=== PATIENT | male | born 1975 | race Two or more races ===

== ENCOUNTER 2024-07-21 08:50 | Emergency (ER) | payer OTHER ==
[~2024-07-21] VITALS: Ht 180.3 cm; Wt 91.9 kg
--- NOTE | 2024-07-21 09:01 | ED.PDOC ---
GI ASSESSMENT HPI Comments A 49 YEAR OLD MALE PRESENTS TO THE ED WITH CHIEF COMPLAINT OF ABDOMINAL PAIN. PATIENT REPORTS THAT HE HAS BEEN EXPERIENCING RIGHT UPPER QUADRANT ABDOMINAL PAIN FOR THE PAST 2 DAYS. PATIENT RELAYS THAT HE HAS HISTORY OF LIVER CIRRHOSIS DUE TO HEAVY DRINKING AND QUIT A YEAR AGO, HOWEVER, 2 MONTHS AGO HE STARTED TO DRINK A 12 PACK OF BEER DAILY. PATIENT STATES HE HAD WENT TO REHAB 2 DAYS AGO, BUT STARTED TO EXPERIENCE CONSTANT RUQ ABDOMINAL PAIN WITH ASSOCIATED NAUSEA. PATIENT DENIES ANY VOMITING, DIARRHEA, SOB, CHEST PAIN, DIZZINESS, FEVER, CHILLS, OR DYSURIA. PATIENT NOTES HIS LAST DRINK WAS 2 DAYS AGO WHEN THE REHAB CENTER GAVE HIM A SMALL AMOUNT OF ALCOHOL TO ALLOW HIM TO SLEEP. NO OTHER SYMPTOMS REPORTED AT THIS TIME OF CARE. Time Seen by MD: 08:56 Reviewed Notes: Nurses Notes, Medications, Allergies Allergies: Coded Allergies: NO KNOWN ALLERGIES (Unverified , 07/21/24) Home Meds Active Scripts Ondansetron Odt 4MG Tab (ZOFRAN PO) 4 Mg Tb, 4 MG PO BID, #30 TAB ODT TAB-DISSOLVE IN MOUTH, THEN SWALLOW Prov:BRIGID PEREZ 07/21/24 Ibuprofen (Ibuprofen) 800 Mg Tab, 1 TAB PO TID, #30 TAB Prov:BRIGID PEREZ 07/21/24 Information Source: Patient Mode of Arrival: Ambulatory Timing: Days Duration: Since onset Prehospital treatment: None Quality: Aching, Cramping, Sharp, Colicky Vomitus: None Stool: Normal Severity: Moderate Recent: None Recent Hx of: None Pain Location: RUQ, Other (RIGHT MIDDLE ABD PAIN ) Modifying Factors: Nothing Associated sign and symptoms: Nausea, Abdominal Pain Past Medical History Past Medical History (Other): LIVER CIRRHOSIS Surgical History: Denies all surgeries Family History Family History: Reviewed,noncontributory to illness Social History Smoker: Non-Smoker Alcohol: Heavy Drugs: Denies Drug Use Lives In: Home Constitutional: denies: chills, diaphoresis, fatigue, fever, malaise, sweats, weakness, others EENTM: denies: blurred vision, double vision, ear bleeding, ear discharge, ear drainage, ear pain, ear ringing, eye pain, eye redness, hearing loss, mouth pain, mouth swelling, nasal discharge, nose bleeding, nose congestion, nose pain, photophobia, tearing, throat pain, throat swelling, voice changes, others Respiratory: denies: cough, hemoptysis, orthopnea, SOB at rest, shortness of breath, SOB with excertion, stridor, wheezing, others Cardiovascular: denies: chest pain, dizzy spells, diaphoresis, Dyspnea on exertion, edema, irregular heart beat, left arm pain, lightheadedness, palpitations, PND, syncope, others Gastrointestinal: reports: abdominal pain, nausea; denies: abdomen distended, blood streaked bowels, constipated, diarrhea, dysphagia, difficulty swallowing, hematemesis, melena, poor appetite, poor fluid intake, rectal bleeding, rectal pain, vomiting, others Genitourinary: denies: burning, dysuria, flank pain, frequency, hematuria, incontinence, penile discharge, penile sore, pain, testicle pain, testicle swelling, urgency, others Neurological: denies: dizziness, fainting, headache, left sided numbness, left sided weakness, numbness, paresthesia, pre-existing deficit, right sided numbness, right sided weakness, seizure, speech problems, tingling, tremors, weakness, others Musculoskeletal: denies: back pain, gout, joint pain, joint swelling, muscle pain, muscle stiffness, neck pain, others Integumetry: denies: bruises, change in color, change in hair/nails, dryness, laceration, lesions, lumps, rash, wounds, others Allergic/Immunocompromised: denies: Difficulty Healing, Frequent Infections, Hives, Itching, others Hematologic/Lymphatic: denies: anemia, blood clots, easy bleeding, easy bruising, swollen glands, others Endocrine: denies: excessive hunger, excessive sweating, excessive thirst, excessive urination, flushing, intolerance to cold, intolerance to heat, unexplained weight gain, unexplained weight loss, others Psychiatric: denies: anxiety, bipolar disorder, depression, hopeless, panic disorder, schizophrenia, sleepless, suicidal, others All Other Systems: Reviewed and Negative Physical Exam General Appearance: No Apparent Distress, Normal HEENT: Normal ENT Inspection, PERRL/EOMI Neck: Full Range of Motion, Non-Tender, Normal, Normal Inspection Respiratory: Chest Non-Tender, Lungs Clear, No Accessory Muscle Use, No Respiratory Distress, Normal Breath Sounds Cardiovascular: No Edema, No JVD, No Murmur, No Gallop, Normal Peripheral Pulses, Regular Rate/Rhythm Breast Exam: Deferred Gastrointestinal: No Organomegaly, No Pulsatile Mass, Normal Bowel Sounds, RUQ, Soft, Tenderness (RIGHT MIDDLE ABD, NO GUARDING AND REBOUND TENDERNESS, NO DISTENDED ABD. ) Genitalia: Deferred Pelvic: Deferred Rectal: Deferred Extremities: No calf tenderness, Normal capillary refill, Normal inspection, Normal range of motion, Non-tender, No pedal edema Musculoskeletal : Apperance: Normal Neurologic: Alert, job forwarder II-XII nml as Tested, No Motor Deficits, Normal Affect, Normal Mood, No Sensory Deficits Cerebellar Function: Normal Reflexes: Normal Skin: Dry, Normal Color, Warm Peripheral Pulses: 2+ carotid (R), 2+ carotid (L) Lymphatic: No Adenopathy Was a procedure done? Was a procedure done?: No GI differential Dx Differential Diagnosis: Cholangitis, Cholecystitis, Gastritis/PUD, Gastroenteritis, Hepatitis, Inflammatory BD, UTI, Urolithiasis X-Ray, Labs, Meds, VS Vital Signs Date Time Temp Pulse Resp B/P (MAP) Pulse Ox O2 Delivery O2 Flow Rate FiO2 07/21/24 11:01 98.7 108 18 147/88 (107) 99 98.7 07/21/24 09:54 107 18 97 Room Air 07/21/24 09:54 98.6 107 18 172/95 (120) 97 98.6 07/21/24 09:29 Room Air* 0 21 07/21/24 09:00 98.6 107 18 192/95 (127) 97 Lab Test 07/21/24 09:28 07/21/24 09:00 Range/Units White Blood Count 8.8 4.4-10.8 10^3/uL Red Blood Count 5.36 4.5-5.90 10^6/uL Hemoglobin 16.2 13.5-17.5 g/dL Hematocrit 46.6 41.0-53.0 % Mean Corpuscular Volume 87.0 80.0-100.0 fL Mean Corpuscular Hemoglobin 30.3 28.0-32.0 pg Mean Corpuscular Hemoglobin Concent 34.8 32.0-36.0 g/dL Red Cell Distribution Width 15.0 H 11.8-14.3 % Platelet Count 127 L 140-450 10^3/uL Mean Platelet Volume 8.5 6.9-10.8 fL Neutrophils (%) (Auto) 66.8 37.0-80.0 % Lymphocytes (%) (Auto) 23.7 10.0-50.0 % Monocytes (%) (Auto) 7.6 0.0-12.0 % Eosinophils (%) (Auto) 0.9 0.0-7.0 % Basophils (%) (Auto) 1.0 0.0-2.0 % Neutrophils # (Auto) 5.9 1.6-8.6 10 ^3/uL Lymphocytes # (Auto) 2.1 0.4-5.4 10 ^3/uL Monocytes # (Auto) 0.7 0-1.3 10 ^3/uL Eosinophils # (Auto) 0.1 0-0.8 10 ^3/uL Basophils # (Auto) 0.1 0-0.2 10 ^3/uL Nucleated Red Blood Cells 0.3 % Prothrombin Time 11.6 9.3-11.8 sec Prothrombin Time INR 1.10 0.9-1.15 Sodium Level 136 136-145 mmol/L Potassium Level 3.8 3.5-5.1 mmol/L Chloride Level 102 98-107 mmol/L Carbon Dioxide Level 24 20-31 mmol/L Anion Gap 10 5-15 Blood Urea Nitrogen 9 9-23 mg/dL Creatinine 0.91 0.700-1.30 mg/dL Glomerular Filtration Rate Calc 105 >90 mL/min BUN/Creatinine Ratio 9.9 L 10.0-20.0 Serum Glucose 209 H 74-106 mg/dL Calcium Level 10.2 8.7-10.4 mg/dL Total Bilirubin 2.9 H 0.2-1.0 mg/dL Aspartate Amino Transferase (AST) 43 H 13-40 U/L Alanine Aminotransferase (ALT) 30 7-40 U/L Alkaline Phosphatase 169 H 46-116 U/L Ammonia 32 11-32 umol/L Total Protein 8.8 H 5.7-8.2 g/dL Albumin 4.7 3.2-4.8 g/dL Lipase 51 12-53 U/L Plasma/Serum Blood Alcohol < 3.0 <10 mg/dL Urine Color Yellow Yellow Urine Clarity Clear Clear Urine pH 8.5 5.0-9.0 Urine Specific [place] 1.029 1.001-1.035 Urine Protein 2+ H Negative Urine Ketones 1+ H Negative Urine Blood Negative Negative /uL Urine Nitrite Negative Negative Urine Bilirubin Negative Negative Urine Urobilinogen 12 H Negative mg/dL Urine Leukocyte Esterase Negative Negative /uL Urine RBC 1 0 - 3 /hpf Urine WBC 1 0 - 3 /hpf Urine Squamous Epithelial Cells Few <5 /hpf Urine Bacteria Few H None Seen /hpf Urine Mucus Few None Seen Urine Glucose 4+ H Normal mg/dL Current Medications Medications (Trade) Dose Ordered Sig/Rey Route Start Time Stop Time Status Last Admin Ketorolac Tromethamine (Toradol Injection) 60 mg ONCE ONCE IM 07/21/24 11:00 07/21/24 11:01 DC 07/21/24 11:11 CT ABD/PEL: Findings: Evaluation of vasculature and solid organs is limited due to lack of intravenous contrast use. Lung Bases: Lung bases are clear. Visualized portions of the heart and pericardium are unremarkable. Liver: The liver is nodular in contour. Diffusely low attenuating liver parenchyma. Gallbladder and Biliary Tree: The gallbladder contains layering increased density compatible with sludge. There is a punctate gallstone. No intrahepatic or extrahepatic biliary ductal dilatation. Spleen: Unremarkable Pancreas: The pancreas is grossly unremarkable. Adrenal Glands: Unremarkable Kidneys: Kidneys are unremarkable without calculi or hydronephrosis. GI tract: The stomach is grossly normal in appearance. No evidence of small bowel wall thickening or abnormal dilatation to suggest bowel obstruction. Sigmoid and ascending diverticulosis without acute diverticulitis. Normal caliber appendix. Peritoneum/mesentery/retroperitoneum. No evidence of free intraperitoneal air. No ascites. No evidence of suspicious lymphadenopathy. Abdominal Wall: Unremarkable. Vasculature: The visualized abdominal aorta is normal in size and caliber. Evaluation of abdominal and pelvic vessels is limited due to lack of intravenous contrast. Periesophageal varices. Urinary Bladder: Grossly unremarkable for degree of distention. Pelvic Organs: Unremarkable Musculoskeletal: No aggressive focal bony lesions, acute fractures or dislocation. IMPRESSION: 1. No acute abdominal or pelvic findings. 2. Gallbladder sludge. Punctate gallstone. 3. Cirrhotic morphology of the liver and hepatic steatosis. 4. Colonic diverticulosis without acute diverticulitis. X-Ray, Labs, Meds, VS Comment I reviewed the following notes from patient's past medical encounters: None The following tests were ordered, and results were reviewed by me: PTPTT, LIPASE, CBC, CMP, AMMONIA, UA, BLOOD ETOH, CT ABD/PEL Additional Information was gathered from interviewing the following independent historians: None I reviewed and agreed with the following test results read by other providers: CT ABD/PEL I discussed treatment and results with medical personnel. TREATMENT: TORADOL 60MG IM Images Reviewed?: Images reviewed and evaluated by me Time of 1ST Reevaluation: :43 Reevaluation 1ST: Improved Patient Education/Counseling: Diagnosis, Treatment, Need For Follow Up Family Education/Counseling: Diagnosis, Treatment, No Family Present Medical Screening: No EMC Exist At This Time Departure 1 Departure Time of Disposition: :43 Impression: Primary Impression: Gallstone Qualified Codes: K80.20 - Calculus of gallbladder without cholecystitis without obstruction Additional Impressions: Gallbladder sludge Liver cirrhosis Qualified Codes: K70.30 - Alcoholic cirrhosis of liver without ascites Disposition: HOME / SELF CARE / HOMELESS Condition: Stable Additional Instructions: FOLLOW UP WITH PCP WITHIN 2-3 DAYS. e-Prescriptions Ondansetron Odt 4MG Tab (ZOFRAN PO) 4 Mg Tb 4 MG PO BID, #30 TAB ODT TAB-DISSOLVE IN MOUTH, THEN SWALLOW Prov: BRIGID PEREZ 07/21/24 Ibuprofen (Ibuprofen) 800 Mg Tab 1 TAB PO TID, #30 TAB Prov: BRIGID PEREZ 07/21/24 Discharged With: Self Critical Care Note Critical Care Time?: No Stability Stability form required: No Heart Score Heart Score: Heart Score Response (Comments) Value History N/A 0 EKG N/A 0 Age N/A 0 Risk Factors N/A 0 Troponin N/A 0 Total 0 I personally scribed for BIRGID PEREZ ([email or web address]) on 07/21/24 at 09:01. Electronically submitted by Gilberto Gifford ([email or web address]). I personally scribed for BRIGID PEREZ ([email or web address]) on 07/21/24 at 09:10. Electronically submitted by Gilberto Gifford ([email or web address]). I personally scribed for BRIGID PEREZ ([email or web address]) on 07/21/24 at 09:38. Electronically submitted by Gilberto Gifford ([email or web address]). I personally scribed for BRIGID PEREZ ([email or web address]) on 07/21/24 at 10:58. Electronically submitted by Gilberto Gifford ([email or web address]). I personally scribed for BRIGID PEREZ ([email or web address]) on 07/21/24 at 11:39. Electronically submitted by Gilberto Gifford ([email or web address]). BRIGID PEREZ Jul 21, 2024 09:01
--- NOTE | 2024-07-21 09:35 | DVH ---
Exam: CT CT AB PEL WO CON-NO ORAL OR IV History: RIGHT MIDDLE ABD PAIN POST ETOH, HX OF ETOH ABUSE Comparison Study: None available at time of dictation. Technique: Multidetector spiral CT of the abdomen and pelvis was performed from lung bases to pubic s ymphysis. Imaging was performed without intravenous contrast. Coronal and sagittal multiplanar refor mats were obtained from the axial data set by the technologist. Radiation Dose : 1. Abdomen/Pelvis: CTDIvol 13.9 mGy, DLP 813.3 mGy*cm. Findings: Evaluation of vasculature and solid organs is limited due to lack of intravenous contrast use. Lung Bases: Lung bases are clear. Visualized portions of the heart and pericardium are unremarkable. Liver: The liver is nodular in contour. Diffusely low attenuating liver parenchyma. Gallbladder and Biliary Tree: The gallbladder contains layering increased density compatible with slu dge. There is a punctate gallstone. No intrahepatic or extrahepatic biliary ductal dilatation. Spleen: Unremarkable Pancreas: The pancreas is grossly unremarkable. Adrenal Glands: Unremarkable Kidneys: Kidneys are unremarkable without calculi or hydronephrosis. GI tract: The stomach is grossly normal in appearance. No evidence of small bowel wall thickening or abnormal dilatation to suggest bowel obstruction. Sigmoid and ascending diverticulosis without acute diverticulitis. Normal caliber appendix. Peritoneum/mesentery/retroperitoneum. No evidence of free intraperitoneal air. No ascites. No evidenc e of suspicious lymphadenopathy. Abdominal Wall: Unremarkable. Vasculature: The visualized abdominal aorta is normal in size and caliber. Evaluation of abdominal a nd pelvic vessels is limited due to lack of intravenous contrast. Periesophageal varices. Urinary Bladder: Grossly unremarkable for degree of distention. Pelvic Organs: Unremarkable Musculoskeletal: No aggressive focal bony lesions, acute fractures or dislocation. IMPRESSION: 1. No acute abdominal or pelvic findings. 2. Gallbladder sludge. Punctate gallstone. 3. Cirrhotic morphology of the liver and hepatic steatosis. 4. Colonic diverticulosis without acute diverticulitis.
[2024-07-21 10:09] LABS: Urine Bacteria FEW /hpf (None Seen); Urine Blood Negative /uL (Negative); Urine Clarity Clear (Clear); Urine Mucus FEW (None Seen); Urine Protein, UAD 2+ (Negative); Urine Specific Gravity 1.029 (1.001-1.035); Urine Squamous Epithelial Cell FEW /hpf (<5); Urine WBC 1 /hpf (0 - 3); Urine pH 8.5 (5.0-9.0)
[2024-07-21 10:16] LABS: Basophils # (auto) 0.1 10 ^3/uL (0-0.2); Eosinophils # (auto) 0.1 10 ^3/uL (0-0.8); Eosinophils % (auto) 0.9 % (0.0-7.0); Hematocrit 46.6 % (41.0-53.0); Hemoglobin 16.2 g/dL (13.5-17.5); Lymphocytes # (auto) 2.1 10 ^3/uL (0.4-5.4); Lymphocytes % (auto) 23.7 % (10.0-50.0); Mean Corpuscular Hemoglobin 30.3 pg (28.0-32.0); Mean Corpuscular Hgb Conc. 34.8 g/dL (32.0-36.0); Monocytes # (auto) 0.7 10 ^3/uL (0-1.3); Monocytes % (auto) 7.6 % (0.0-12.0); Neutrophils # (auto) 5.9 10 ^3/uL (1.6-8.6); Neutrophils % (auto) 66.8 % (37.0-80.0); Nucleated Red Blood Cells % 0.3 %; Platelet Count (auto) 127 10^3/uL (140-450); Red Blood Cells 5.36 10^6/uL (4.5-5.90); White Blood Cell 8.8 10^3/uL (4.4-10.8)
[2024-07-21 10:17] LABS: Alanine Aminotransferase 30 U/L (7-40); Anion Gap 10 (5-15); BUN/Creatinine Ratio 9.9 (10.0-20.0); Calcium 10.2 mg/dL (8.7-10.4); Carbon Dioxide 24 mmol/L (20-31); Chloride 102 mmol/L (98-107); Potassium 3.8 mmol/L (3.5-5.1); Sodium 136 mmol/L (136-145)
[2024-07-21 10:18] LABS: Albumin 4.7 g/dL (3.2-4.8)
[2024-07-21 10:24] LABS: Alkaline Phosphatase 169 U/L (46-116); Aspartate Aminotransferase 43 U/L (13-40); Bilirubin, Total 2.9 mg/dL (0.2-1.0); Blood Urea Nitrogen 9 mg/dL (9-23); Glucose 209 mg/dL (74-106); Total Protein 8.8 g/dL (5.7-8.2)
[2024-07-21 10:25] LABS: Blood Alcohol < 3.0 mg/dL (<10)
[2024-07-21 10:26] LABS: INR 1.1 (0.9-1.15); Prothrombin Time 11.6 sec (9.3-11.8)
[2024-07-21 10:26] LABS: Urine Color Yellow (Yellow); Urine Urobilinogen 12 mg/dL (Negative)
[2024-07-21 11:01] VITALS: BP 147/88; PULSE 108; RESP 18; TEMP 98.7; O2SAT 99
[2024-07-21] MEDS: KETOROLAC TROMETH 60MG/2ML VIAL IM ONE (11:11)
[2024-07-21 11:14] LABS: Lipase 51 U/L (12-53)
[2024-07-21] MEDS ORDERED: IBUP-1456 PO (11:41)
[2024-07-21] MEDS ORDERED: ZOFR4T PO (11:41)
== END 2024-07-21 11:58 | disposition home or self-care (01) ==
LOC: EDBD 08:50 → ER 08:50
DX: K80.20 Calculus of gallbladder without cholecystitis without obstruction (principal); K74.60 Unspecified cirrhosis of liver; F10.90 Alcohol use, unspecified, uncomplicated; Z79.1 Long term (current) use of non-steroidal anti-inflammatories (NSAID); Z79.899 Other long term (current) drug therapy; Y90.0 Blood alcohol level of less than 20 mg/100 ml
CPT/HCPCS: 36415; 74176; 80053; 80320; 81001; 82140; 83690; 85025; 85610; 96372; 99285; J1885